=== PATIENT | male | born 2005 | race Hispanic/Latino ===

== ENCOUNTER 2023-03-27 08:31 | Emergency (ER) | payer BC, OTHER ==
[2023-03-27] MEDS ORDERED: Boostrix 0.5 ML (Tdap) VIAL (>/=7 yrs of age) ONE (08:53)
== END 2023-03-27 09:17 | disposition home or self-care (01) ==
LOC: MADERS 08:31
DX: S61.213A Laceration without foreign body of left middle finger without damage to nail, initial encounter (principal); Z23 Encounter for immunization; W26.9XXA Contact with unspecified sharp object(s), initial encounter
CPT/HCPCS: 90471; 90715